=== PATIENT | female | born 1985 | race Caucasian/White ===

== ENCOUNTER 2023-06-11 08:52 | Emergency (ER) | payer SELFPAY ==
[~2023-06-11] VITALS: Ht 170.2 cm; Wt 99.8 kg
[2023-06-11] MEDS ORDERED: LACTULOSE 20 G/30 ML LIQUID UDC ONE (09:57)
[2023-06-11] MEDS: LACTULOSE 20 G/30 ML LIQUID UDC PO ONE (10:00)
[2023-06-11] MEDS ORDERED: LACT10SO58 PO (10:01)
[2023-06-11 10:08] VITALS: BP 120/54; O2SAT 100
== END 2023-06-11 10:30 | disposition home or self-care (01) ==
LOC: ER 08:56
DX: K59.00 Constipation, unspecified (principal); F32.A Depression, unspecified; Z79.899 Other long term (current) drug therapy; Z88.1 Allergy status to other antibiotic agents
CPT/HCPCS: A4606; A4663

== ENCOUNTER 2023-06-21 18:24 | Emergency (ER) | payer BC ==
[~2023-06-21 18:24] MED LIST: LACT10SO58 PO
== END 2023-06-21 20:40 | disposition left against medical advice (07) ==
LOC: ER 18:32
DX: R07.89 Other chest pain (principal); Z53.21 Procedure and treatment not carried out due to patient leaving prior to being seen by health care provider